=== PATIENT | female | born 1955 | race Caucasian/White ===

== ENCOUNTER 2019-04-24 18:28 | Emergency (ER) | payer OTHER ==
[~2019-04-24] VITALS: Ht 162.6 cm; Wt 79.4 kg
[2019-04-24 19:46] VITALS: BP 114/73
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
--- NOTE | 2019-04-24 23:22 | NUR ---
STAS JEAN AT BEDSIDE FOR RE-EVAL
--- NOTE | 2019-04-24 23:41 | NUR ---
PATIENT LEFT WITHOUT RECEIVING DISCHARGE INSTRUCTIONS. PATIENT HAS ALREADY RECEIVED RESULTS REGARDING IMAGING FROM [facility].
== END 2019-04-24 23:44 | disposition home or self-care (01) ==
LOC: ER 18:34
DX: M54.41 Lumbago with sciatica, right side (principal); E03.9 Hypothyroidism, unspecified; M25.551 Pain in right hip; Z85.3 Personal history of malignant neoplasm of breast; V49.49XA Driver injured in collision with other motor vehicles in traffic accident, initial encounter; Y93.89 Activity, other specified; Y92.413 State road as the place of occurrence of the external cause; Y99.8 Other external cause status
CPT/HCPCS: 71100-TC; 72110-TC; 73502